=== PATIENT | male | born 1955 | race Hispanic/Latino ===

== ENCOUNTER 2016-03-25 21:53 | Emergency (ER) | payer OTHER ==
[~2016-03-25] VITALS: Ht 152.4 cm; Wt 94.6 kg
[~2016-03-25 21:53] MED LIST: ADVAIR 250/501 DISK IH; ALBUTEROL SULF8.5 GM IH; ASPIRIN81 M1 PO; AUGMENTIN875 MG PO; AZITHROMYCIN250 MG PO; CHOLESTYRAMINE P4 GM PO; CLARITIN,ALAVAR10 MG PO; DELTASONE20 M1 PO; DOXYCYCLINE HY100 MG PO; FLAGYL500 MG PO; FLOMAX0.4 MG PO; FLONASE16 G1 BOTH NARES; GABAPENTIN300 MG PO; KLONOPIN0.5 M1 PO; LEVAQUIN500 MG PO; LEVAQUIN750 MG PO; LEVOFLOXACIN750 MG PO; LEVOTHYROXINE25 MCG PO; LEVOTHYROXINE50 MCG PO; LEXAPRO10 MG PO; LORAZEPAM0.5 MG PO; MOTRIN800 MG PO; NAPROSYN500 MG PO; NEXIUM40 MG PO; OMEPRAZOLE40 M1 PO; PERCOCET 5/31 TABLET PO; PREDNISONE10 MG PO; PREDNISONE20 MG PO; QUESTRAN PACKET4 GM PO; SYMBICORT60 INHALA1 IH; TIROSINT50 MCG PO; ULTRAM50 MG PO; VENTOLIN HFA18 GM IH; VICODIN,LORT1 TABLET PO; ZANTAC150 MG PO; ZITHROMAX Z-PA250 MG PO; ZOFRAN4 MG PO
[2016-03-25] MEDS ORDERED: PATANOL OP100 DROP/5 BOTH EYES (23:35)
[2016-03-25 23:52] VITALS: BP 131/87
== END 2016-03-25 23:52 | disposition home or self-care (01) ==
LOC: EME 21:53
DX: H10.9 Unspecified conjunctivitis (principal); F17.200 Nicotine dependence, unspecified, uncomplicated; J44.9 Chronic obstructive pulmonary disease, unspecified; I10 Essential (primary) hypertension; E78.5 Hyperlipidemia, unspecified; E03.9 Hypothyroidism, unspecified
CPT/HCPCS: 99281; 99283

== ENCOUNTER 2016-04-23 21:42 | Emergency (ER) | payer OTHER ==
[~2016-04-23] VITALS: Ht 172.7 cm; Wt 92.0 kg
[~2016-04-23 21:42] MED LIST changes: +PATANOL OP100 DROP/5 BOTH EYES
[2016-04-23 23:55] LABS: HEMATOCRIT 38.6 % (38.0-50.0); MCH 29.6 PG (29.0-34.0); MCHC 32.6 G/DL (30.0-36.0); MCV 90.8 FL (86-99); MEAN PLAT.VOLUME 9.3 uM^3 (9.0-12.4); PLATELET COUNT 206 K/uL (156-360); RBC DIS.WIDTH-CV 13.5 % (11.8-14.6); RBC DIS.WIDTH-SD 44.2 % (39-53); RED BLOOD COUNT 4.25 M/uL (4.00-5.50); WHITE BLOOD COUNT 9.7 K/uL (4.1-10.2)
[2016-04-24 00:06] LABS: CHLORIDE 103 mEq/L (99-109); SODIUM 136 mEq/L (136-147)
[2016-04-24 00:08] LABS: GLUCOSE 96 mg/dL (70-99)
[2016-04-24 00:09] LABS: ANION GAP 8 MEQ/L (2-14)
[2016-04-24 00:12] LABS: GFR ESTIMATE (CALCULATED) > 59 mL/min/
[2016-04-24 00:13] LABS: UREA NITROGEN (BUN) 13 mg/dL (9-23)
[2016-04-24 01:33] VITALS: BP 131/84
== END 2016-04-24 01:35 | disposition home or self-care (01) ==
LOC: EME 21:42
PROVIDERS: Emergency Medicine
DX: M54.2 Cervicalgia (principal)
CPT/HCPCS: 70496; 70498; 80048; 85027; 99281; 99284; J1885

== ENCOUNTER 2016-07-16 19:20 | Emergency (ER) | payer OTHER ==
[~2016-07-16] VITALS: Ht 172.7 cm; Wt 91.0 kg
[2016-07-16] MEDS ORDERED: SKELAXIN800 MG PO (20:58)
[2016-07-16 22:23] VITALS: BP 120/84
== END 2016-07-16 22:27 | disposition home or self-care (01) ==
LOC: EME 19:20
DX: G89.29 Other chronic pain (principal); M54.5 Low back pain; F17.200 Nicotine dependence, unspecified, uncomplicated
CPT/HCPCS: 99281; 99284; J1100; J2270

== ENCOUNTER 2016-09-05 21:18 | Emergency (ER) | payer OTHER ==
[~2016-09-05] VITALS: Ht 172.7 cm; Wt 92.0 kg
[~2016-09-05 21:18] MED LIST changes: +SKELAXIN800 MG PO
[2016-09-05 22:32] LABS: MCH 30.4 PG (29.0-34.0); MCHC 33.1 G/DL (30.0-36.0); MCV 91.8 FL (86-99); PLATELET COUNT 248 K/uL (156-360); RBC DIS.WIDTH-CV 12.8 % (11.8-14.6); RBC DIS.WIDTH-SD 42.8 % (39-53); RED BLOOD COUNT 4.25 M/uL (4.00-5.50); WHITE BLOOD COUNT 7.4 K/uL (4.1-10.2)
[2016-09-05 23:27] LABS: CHLORIDE 105 mEq/L (99-109); POTASSIUM 4.2 mEq/L (3.7-5.4); SODIUM 137 mEq/L (136-147)
[2016-09-05 23:29] LABS: GLUCOSE 106 mg/dL (70-99)
[2016-09-05 23:30] LABS: ANION GAP 8 MEQ/L (2-14)
[2016-09-05 23:32] LABS: GFR ESTIMATE (CALCULATED) > 59 mL/min/
[2016-09-05 23:33] LABS: UREA NITROGEN (BUN) 14 mg/dL (9-23)
[2016-09-06 00:11] LABS: D-DIMER ELISA 0.64 mg/L FEU (< 0.57)
[2016-09-06 00:25] LABS: TROP-I INTERPRETATION NEGATIVE; TROPONIN-I < 0.01 ng/mL (0.0-0.30)
[2016-09-06 00:39] LABS: TOTAL BILIRUBIN 0.4 mg/dL (0.0-1.0)
[2016-09-06 00:40] LABS: ALKALINE PHOSPHATASE 86 IU/L (3-129)
[2016-09-06 00:42] LABS: DIRECT BILIRUBIN 0.1 mg/dL (0.0-0.3)
[2016-09-06 00:43] LABS: LIPASE 24 U/L (1.0-51.0)
[2016-09-06] MEDS ORDERED: NORCO 5/3251 TABLET PO (03:42)
[2016-09-06 04:22] VITALS: BP 145/83
== END 2016-09-06 04:30 | disposition home or self-care (01) ==
LOC: EME 21:18
DX: M94.0 Chondrocostal junction syndrome [Tietze] (principal); J06.9 Acute upper respiratory infection, unspecified; I10 Essential (primary) hypertension; J44.9 Chronic obstructive pulmonary disease, unspecified; F17.200 Nicotine dependence, unspecified, uncomplicated; F32.9 Major depressive disorder, single episode, unspecified; K21.9 Gastro-esophageal reflux disease without esophagitis
CPT/HCPCS: 71020; 71275; 74177; 80048; 80076; 81003; 83690; 84484; 85027; 85379; 93005; 99281; 99285; J1885; J7030

== ENCOUNTER 2017-07-02 12:14 | Observation (INO) | payer OTHER ==
[~2017-07-02] VITALS: Ht 172.7 cm; Wt 90.5 kg
[~2017-07-02 12:14] MED LIST changes: +NORCO 5/3251 TABLET PO
[2017-07-02 12:46] LABS: HEMATOCRIT 39.8 % (38.0-50.0); HEMOGLOBIN 13.6 G/DL (12.5-16.6); MCH 30.9 PG (29.0-34.0); MCHC 34.2 G/DL (30.0-36.0); MCV 90.5 FL (86-99); PLATELET COUNT 230 K/uL (156-360); RBC DIS.WIDTH-CV 12.6 % (11.8-14.6); RBC DIS.WIDTH-SD 42.4 % (39-53); WHITE BLOOD COUNT 7.6 K/uL (4.1-10.2)
[2017-07-02 12:52] LABS: CHLORIDE 107 mEq/L (99-109); POTASSIUM 4.8 mEq/L (3.7-5.4); SODIUM 138 mEq/L (136-147)
[2017-07-02 12:53] LABS: GLUCOSE 99 mg/dL (70-99)
[2017-07-02 12:57] LABS: GFR ESTIMATE (CALCULATED) > 59 mL/min/ (58.99-99999)
[2017-07-02 12:58] LABS: UREA NITROGEN (BUN) 15 mg/dL (9-23)
[2017-07-02 13:04] LABS: TROP-I INTERPRETATION NEGATIVE; TROPONIN-I < 0.01 ng/mL (0.0-0.30)
[2017-07-02] MEDS ORDERED: ADVIL200 MG PO (14:04)
[2017-07-02] MEDS ORDERED: CLOTRIMAZOLE-BE15 GM TP (14:05)
[2017-07-02 16:30] VITALS: BP 109/70
[2017-07-02 19:22] VITALS: BP 109/67
[2017-07-02 19:28] LABS: TROP-I INTERPRETATION NEGATIVE; TROPONIN-I < 0.01 ng/mL (0.0-0.30)
[2017-07-02 19:31] LABS: HDL CHOLESTEROL 21 MG/DL (Desirable>=40); LDL CHOLESTEROL 62 mg/dL (Desirable<100); NON-HDL CHOLESTEROL 120 mg/dL (Desirable<160); TOTAL CHOLESTEROL 141 mg/dL (Desirable<200); TRIGLYCERIDES 288 MG/DL (Normal: <150)
[2017-07-02 23:16] VITALS: BP 115/61
[2017-07-03 00:50] LABS: TROP-I INTERPRETATION NEGATIVE; TROPONIN-I < 0.01 ng/mL (0.0-0.30)
[2017-07-03 04:09] VITALS: BP 123/59
[2017-07-03] MEDS ORDERED: ZITHROMAX500 MG PO (08:17)
[2017-07-03] MEDS ORDERED: PREDNISONE10 MG PO (08:17)
[2017-07-03] MEDS ORDERED: ADULT ASPIRIN81 MG PO (08:24)
[2017-07-03] MEDS ORDERED: ATORVASTATIN CA10 MG PO (08:24)
[2017-07-03] MEDS ORDERED: NICODERM CQ1 EAC1 TD (08:26)
[2017-07-03 08:57] VITALS: BP 122/62
== END 2017-07-03 10:15 | disposition home or self-care (01) ==
LOC: EME 12:14 → EDOF 14:19 → 4SOUTH 14:19 → EDOF 14:19 → ENRESERV 14:33 → 4SOUTH 15:43
PROVIDERS: Internal Medicine; Nurse Practitioner Family
DX: J44.1 Chronic obstructive pulmonary disease with (acute) exacerbation (principal); J44.0 Chronic obstructive pulmonary disease with (acute) lower respiratory infection; J20.9 Acute bronchitis, unspecified; R09.1 Pleurisy; F17.200 Nicotine dependence, unspecified, uncomplicated; E78.5 Hyperlipidemia, unspecified; I10 Essential (primary) hypertension; K22.70 Barrett's esophagus without dysplasia; N40.0 Benign prostatic hyperplasia without lower urinary tract symptoms; I25.10 Atherosclerotic heart disease of native coronary artery without angina pectoris; I25.84 Coronary atherosclerosis due to calcified coronary lesion; Z90.49 Acquired absence of other specified parts of digestive tract; Z82.49 Family history of ischemic heart disease and other diseases of the circulatory system
CPT/HCPCS: 71046; 71275; 80048; 80061; 84484; 85027; 93005; 94640; 94640 76; 99202; 99281; 99285; G0378; J1650; J7512